=== PATIENT | female | born 1975 | race Caucasian/White ===

== ENCOUNTER 2022-01-09 17:37 | Emergency (ER) | payer OTHER, SELFPAY ==
[2022-01-09 18:04] VITALS: BP 162/87; PULSE 73; RESP 22; TEMP 36.6; O2SAT 100
--- NOTE | 2022-01-09 19:18 | ED.BACK ---
HPI - Back Pain/Injury General Chief Complaint: Back Pain/Injury Stated Complaint: back pain Time Seen by Provider: 01/09/22 18:56 Source: patient, family and RN notes reviewed Mode of arrival: ambulatory Limitations: no limitations History of Present Illness HPI Narrative: 46-year-old female presented to the emergency department for evaluation of worsening left-sided back pain and left leg pain. Patient states that she did have minor symptoms after the gym on night. Patient states that she was having worsening symptoms on Monday and did have a nap and after the nap she had intense pain that radiated from her lower back down her leg. Patient denies any associated numbness or weakness but does feel she has some generalized weakness of the left leg due to pain. Patient did have follow-up with chiropractor. Patient has been taking ibuprofen for pain control. Patient denies any previous history of back surgery. Related Data Allergies Allergy/AdvReac Type Severity Reaction Status Date / Time Sulfa (Sulfonamide Allergy Rash Verified 01/09/22 18:37 Antibiotics) Review of Systems Review of Systems: CONSTITUTIONAL: Denies fever, chills, or sweats. EYES: Denies visual changes, redness, or discharge. ENT: Denies rhinorrhea, congestion, sore throat, or otalgia. CARDIOVASCULAR: Denies chest pain, palpitations, or edema. RESPIRATORY: Denies cough or dyspnea. GASTROINTESTINAL: Denies abdominal pain, nausea, vomiting, or diarrhea. GENITOURINARY: Denies dysuria or hematuria. SKIN: Denies rash or itching. MUSCULOSKELETAL: See HPI NEUROLOGIC: See HPI Exam Narrative: APPEARANCE: Uncomfortable appearing due to back pain. HEAD: normocephalic, atraumatic. EYES: PERRLA/EOMI, conjunctivae clear. NOSE: Normal no drainage NECK: Supple. No adenopathy, no masses. No midline tenderness to palpation RESPIRATORY: Airway patent, respirations nonlabored. Clear to auscultation bilaterally, no rales, rhonchi, wheezing. CARDIOVASCULAR: Regular rate and rhythm without murmurs rubs or gallops. ABDOMINAL: Soft, nontender, nondistended, normal bowel sounds MUSCULOSKELETAL: No midline tenderness to palpation, some left lower back pain with tenderness to palpation and tenderness of the left buttock. No lower extremity tenderness. NEURO: Alert. Cranial nerves II through XII intact. Grossly intact SKIN: Warm, dry. Normal Color Course Course Emergency Course: Patient was updated on the diagnosis of sciatica. Patient did have some minor improvement with treatment in the ED. Patient was updated on the plan for scheduled NSAIDs over the next few days. Patient was also encouraged to have close follow-up with her primary care physician. Reasons to return to the emergency department were discussed. All questions and concerns were addressed. Vital Signs Vital signs: Vital Signs Temperature 97.9 F 01/09/22 18:04 Pulse Rate 73 01/09/22 18:04 Respiratory Rate 22 H 01/09/22 18:04 Blood Pressure 162/87 H 01/09/22 18:04 Pulse Oximetry 100 01/09/22 18:04 Temperature 97.9 F 01/09/22 18:04 Pulse Rate 73 01/09/22 18:04 Respiratory Rate 22 H 01/09/22 18:04 Blood Pressure 162/87 H 01/09/22 18:04 Pulse Oximetry 100 01/09/22 18:04 MDM - Back Pain/Injury Differential Diagnosis Differential diagnosis: Likely lumbar radiculopathy and sciatica Discharge Plan Discharge Clinical Impression: Lumbar radiculopathy, Sciatica Patient Disposition: Home, Self-Care Condition: Stable Instructions: Antibiotic Form, Sciatica (ED), Lumbar Radiculopathy (ED) Additional Instructions: Ibuprofen scheduled for pain control for the next 5 days. Flexeril as needed for muscle spasm. [place] as needed for additional pain control. Have close follow-up with your primary care physician. If you have any worsening symptoms or if you have any questions or concerns and please call or return to the emergency department. Prescriptions: New hydro
[2022-01-09] MEDS: HYDROcodone/acetaminophen (*CRX) 5-325 MG TABLET 1 TAB PO ×2 (19:37→20:41)
[2022-01-09] MEDS: CYCLOBENZAPRINE HCL 10 MG TABLET PO (19:38)
[2022-01-09] MEDS: KETOROLAC 30 MG/ML VIAL (*BKC) IM (19:40)
== END 2022-01-09 20:44 | disposition home or self-care (01) ==
PROVIDERS: Emergency Provider Emergency Medicine
DX: M54.42 Lumbago with sciatica, left side (principal); M54.16 Radiculopathy, lumbar region
CPT/HCPCS: 96372; 99283; A9270; J1885